=== PATIENT | female | born 1985 | race Asian ===

== ENCOUNTER → 2017-04-29 | Outpatient (CLI) | payer OTHER ==
[2017-04-29 16:25] LABS: BASOPHILS % (AUTO) 0.6 % (0.0-2.0); EOSINOPHILS % (AUTO) 1.8 % (1.0-6.0); HEMATOCRIT 40.3 % (36-46); LYMPHOCYTES # (AUTO) 2.5 K/uL (1.0-4.8); LYMPHOCYTES % (AUTO) 35.4 % (22.0-44.0); MEAN CORPUSCULAR HEMOGLOBIN 31.4 pg (26.0-34.0); MEAN CORPUSCULAR HGB CONC 34.8 G/dL (31.0-37.0); MEAN CORPUSCULAR VOLUME 90 fL (80-100); MONOCYTES # (AUTO) 0.5 K/uL (0.1-1.0); MONOCYTES % (AUTO) 7.7 % (2.0-9.0); NEUTROPHILS # (AUTO) 3.9 K/uL (1.8-7.7); NEUTROPHILS % (AUTO) 54.5 % (40.0-70.0); PLATELET COUNT (AUTO) 363 K/uL (150-450); RED BLOOD CELL COUNT(AUTO) 4.46 MIL/uL (4.00-5.20); RED CELL DISTRIBUTION WIDTH 12.4 % (11.5-14.5); WHITE BLOOD COUNT (AUTO) 7.1 K/uL (4.5-11.0)
[2017-04-29 16:47] LABS: ALANINE AMINOTRANSFERASE 20 U/L (12-78); ALBUMIN 4.2 g/dL (3.4-5.0); ANION GAP 9 mmol/L (8-16); ASPARTATE AMINOTRANSFERASE 16 U/L (15-37); CALCIUM, TOTAL 9.3 mg/dL (8.8-10.5); CARBON DIOXIDE 26 mmol/L (22-29); CHLORIDE 105 mmol/L (98-107); CHOL/HDL RATIO 5.4 (3.9-5.7); CREATININE 0.59 mg/dL (0.60-1.30); GLOMERULAR FILTR. RATE CALC > 60 mL/min (>60); POTASSIUM 3.8 mmol/L (3.5-5.1); SODIUM SERUM 140 mmol/L (136-145); THYROID STIMULATING HORMONE 1.42 uIU/mL (0.36-3.74); TOTAL PROTEIN, SERUM 7.8 g/dL (6.4-8.2); UREA NITROGEN, BLOOD 8 mg/dL (7-18)
[2017-04-29 16:49] LABS: HEMOGLOBIN A1C 5.3 % (4.5-6.2)
[2017-05-02 18:06] LABS: ALLERGEN A. FUMIGATUS <0.10 kU/L (Class 0); ALLERGEN ALTERNARIA ALTERNATA <0.10 kU/L (Class 0); ALLERGEN BAHIA GRASS <0.10 kU/L (Class 0); ALLERGEN BERMUDA GRASS <0.10 kU/L (Class 0); ALLERGEN BROME SMOOTH GRASS <0.10 kU/L (Class 0); ALLERGEN CAT HAIR/DANDER <0.10 kU/L (Class 0); ALLERGEN CLADOSPORIUM HERBARUM <0.10 kU/L (Class 0); ALLERGEN CODFISH IGE <0.10 kU/L (Class 0); ALLERGEN COMMON SILVER BIRCH <0.10 kU/L (Class 0); ALLERGEN D. PTERNYSSINUS <0.10 kU/L (Class 0); ALLERGEN D.FARINAE(MITE) <0.10 kU/L (Class 0); ALLERGEN DOG HAIR/DANDER <0.10 kU/L (Class 0); ALLERGEN EGG WHITE IGE <0.10 kU/L (Class 0); ALLERGEN EUCALYPTUS TREE <0.10 kU/L (Class 0); ALLERGEN LENSCALE <0.10 kU/L (Class 0); ALLERGEN MILK IGE <0.10 kU/L (Class 0); ALLERGEN MIMOSA/ACACIA TREE <0.10 kU/L (Class 0); ALLERGEN NETTLE <0.10 kU/L (Class 0); ALLERGEN OLIVE TREE <0.10 kU/L (Class 0); ALLERGEN PEANUT IGE <0.10 kU/L (Class 0); ALLERGEN PECAN TREE <0.10 kU/L (Class 0); ALLERGEN PENICILLIUM CHRYSOGEN <0.10 kU/L (Class 0); ALLERGEN PIGWEED <0.10 kU/L (Class 0); ALLERGEN RUSSIAN THISTLE <0.10 kU/L (Class 0); ALLERGEN RYE PERENNIAL <0.10 kU/L (Class 0); ALLERGEN SOYBEAN IGE <0.10 kU/L (Class 0); ALLERGEN STEMPHYLIUM HERBARUM <0.10 kU/L (Class 0); ALLERGEN WALNUT (TREE) <0.10 kU/L (Class 0); ALLERGEN WHEAT IGE <0.10 kU/L (Class 0); ALLERGEN WHITE MULBERRY TREE <0.10 kU/L (Class 0); ALLERGEN WHITE OAK TREE <0.10 kU/L (Class 0); ALLERGEN WORMWOOD/SAGEBRUSH <0.10 kU/L (Class 0)
== END | disposition home or self-care (01) ==
LOC: LABPV 15:17
PROVIDERS: ATTEND Internal Medicine
DX: Z00.01 Encounter for general adult medical examination with abnormal findings (principal); G89.29 Other chronic pain; R20.2 Paresthesia of skin; L29.9 Pruritus, unspecified
CPT/HCPCS: 83036; 84443; 86003

== ENCOUNTER → 2018-01-10 | Outpatient (CLI) | payer OTHER ==
[2018-01-10 13:03] LABS: CHOL/HDL RATIO 5.6 (3.9-5.7)
== END | disposition home or self-care (01) ==
LOC: LABPV 12:24
PROVIDERS: ATTEND Internal Medicine
DX: E78.5 Hyperlipidemia, unspecified (principal)